=== PATIENT | female | born 1950 | race African-American/Black ===

== ENCOUNTER 2021-06-14 11:29 | Emergency (ER) | payer MEDICARE, OTHER ==
[~2021-06-14] VITALS: Ht 167.6 cm; Wt 90.0 kg
[2021-06-14] MEDS ORDERED: amlodipine (11:42)
[2021-06-14] MEDS ORDERED: HYDROCODONE/ACETAMINOPHEN 5/325MG TABLET PO STA (12:29)
[2021-06-14] MEDS ORDERED: MORPHINE SULFATE 10 MG/ML CPJ IM ONE (15:30)
[2021-06-14 16:09] LABS: HEMATOCRIT. 27.9 % (36.0-48.0); HEMOGLOBIN. 8.7 g/dL (12.0-16.0); MEAN CORPUSCULAR HEMOGLOBIN 22.8 pg (28.0-32.0); MEAN CORPUSCULAR VOLUME 73.1 fL (81.0-99.0); PLATELET 148 x1000/uL (130-400); RED BLOOD CELL COUNT 3.81 mill/uL (4.2-5.4); RED CELL DISTRIBUTION WIDTH 21.6 % (11.6-14.6)
[2021-06-14 16:18] LABS: CHLORIDE 108 mEq/L (98-107)
[2021-06-14 16:51] VITALS: BP 132/77
[2021-06-14 17:01] LABS: PLATELET ESTIMATE NORMAL
== END 2021-06-14 17:05 | disposition home or self-care (01) ==
LOC: ER 11:55
DX: M54.50 Low back pain, unspecified (principal); G89.29 Other chronic pain; C90.00 Multiple myeloma not having achieved remission; I10 Essential (primary) hypertension; Z85.6 Personal history of leukemia
CPT/HCPCS: 36415; 72131; 73080; 80053; 85025; 93005; 96372; 99285; J2270